=== PATIENT | male | born 1990 | race Caucasian/White ===

== ENCOUNTER 2021-04-10 11:23 | Emergency (ER) | payer OTHER ==
[~2021-04-10 11:23] MED LIST: BENTYL 20MG TAB20 MG PO; LIORESAL TAB 1010 MG PO; ZOFRAN4 MG PO
== END 2021-04-10 13:31 | disposition left against medical advice (07) ==
LOC: ER1 11:23
DX: Z53.21 Procedure and treatment not carried out due to patient leaving prior to being seen by health care provider (principal)

== ENCOUNTER 2021-10-14 08:09 | Emergency (ER) | payer OTHER | END 2021-10-14 10:15 | disposition home or self-care (01) | LOC: ER1 08:09 | DX: S01.81XA Laceration without foreign body of other part of head, initial encounter (principal); Z23 Encounter for immunization; F17.210 Nicotine dependence, cigarettes, uncomplicated; Z87.442 Personal history of urinary calculi; W22.8XXA Striking against or struck by other objects, initial encounter; Y92.009 Unspecified place in unspecified non-institutional (private) residence as the place of occurrence of the external cause | CPT/HCPCS: 12011; 90715; 99283 ==